=== PATIENT | male | born 1955 | race Caucasian/White ===

== ENCOUNTER 2017-04-19 08:57 | Day surgery (SDC) | payer BC | END 2017-04-19 10:55 | disposition home or self-care (01) | LOC: ORD 08:57 → ORSCMMR 08:57 → MHTC 08:57 → ORD 09:30 → CT 10:00 → ORD 10:55 | PROVIDERS: Radiology Diagnostic Radiology | PROC: B221YZZ Computerized Tomography (CT Scan) of Multiple Coronary Arteries using Other Contrast (ICD-10-PCS; principal; 2017-04-19 09:30) | DX: R94.31 Abnormal electrocardiogram [ECG] [EKG] (principal); I73.9 Peripheral vascular disease, unspecified; R26.89 Other abnormalities of gait and mobility; Z82.49 Family history of ischemic heart disease and other diseases of the circulatory system | CPT/HCPCS: 75574; Q9967 ==

== ENCOUNTER → 2017-06-15 | Outpatient (CLI) | payer BC | END | disposition home or self-care (01) | LOC: LAB SHORT 10:16 → PLD 10:16 | DX: D48.5 Neoplasm of uncertain behavior of skin (principal) | CPT/HCPCS: 88304 ==

== ENCOUNTER → 2018-09-22 | Outpatient (CLI) | payer BC ==
[~2018-09-22] MED LIST: AMLO10 PO; LO-DOSE ASPIRIN81 MG PO; LOSARTAN-HCTZ1 EAC1 PO; METO50ER PO; OCUVITE EYE +1 EACH PO; SIMV40 PO
== END | disposition home or self-care (01) ==
LOC: LAB EV 09:00 → LAB SHORT 09:00
DX: R94.4 Abnormal results of kidney function studies (principal)
CPT/HCPCS: 82043

== ENCOUNTER 2018-09-28 08:13 | Day surgery (SDC) | payer BC ==
[~2018-09-28] VITALS: Ht 182.9 cm; Wt 110.1 kg
== END 2018-09-28 11:20 | disposition home or self-care (01) ==
LOC: ORSCSDS 08:13
PROVIDERS: Internal Medicine Gastroenterology
PROC: 0DBH8ZX Excision of Cecum, Via Natural or Artificial Opening Endoscopic, Diagnostic (ICD-10-PCS; principal; 2018-09-28 10:15)
PROC: 0DBN8ZX Excision of Sigmoid Colon, Via Natural or Artificial Opening Endoscopic, Diagnostic (ICD-10-PCS; principal; 2018-09-28 10:15)
DX: Z12.11 Encounter for screening for malignant neoplasm of colon (principal); D12.5 Benign neoplasm of sigmoid colon; D12.0 Benign neoplasm of cecum; K57.30 Diverticulosis of large intestine without perforation or abscess without bleeding; K64.8 Other hemorrhoids; I10 Essential (primary) hypertension; Z79.899 Other long term (current) drug therapy; Z79.82 Long term (current) use of aspirin
CPT/HCPCS: 88305; J2704; J7120

== ENCOUNTER 2018-10-28 14:18 | Day surgery (SDC) | payer BC ==
[~2018-10-28] VITALS: Ht 182.9 cm; Wt 111.8 kg
--- NOTE | 2018-10-28 16:42 | NUR ---
10/28/18 1642 Valentina Mcdonough O2 FACE TENT REMOVED AT 1641. 97% ON ROOM AIR
--- NOTE | 2018-10-28 17:23 | NUR ---
10/28/18 9155 Valentina Mcdonough WHILE IN STEP DOWN. PT ACCOMPANIED BY HIS IN STEP DOWN. RN WENT OVER DISCHARGE INSTRUCTIONS UNTIL THERE WERE NO QUESTIONS FROM PT AND PT'S FAMILY. PT DRESSED WITH HELP FROM HIS . PT TAKEN OUT TO 'S CAR VIA WHEELCHAIR. WRITTEN INSTRUCTIONS SENT HOME WITH PT.
== END 2018-10-28 17:25 | disposition home or self-care (01) ==
LOC: ORSCSDS 14:18
PROVIDERS: Podiatrist Foot & Ankle Surgery
PROC: 0SGP04Z Fusion of Right Toe Phalangeal Joint with Internal Fixation Device, Open Approach (ICD-10-PCS; principal; 2018-10-28 16:15)
DX: S93.111A Dislocation of interphalangeal joint of right great toe, initial encounter (principal); I12.9 Hypertensive chronic kidney disease with stage 1 through stage 4 chronic kidney disease, or unspecified chronic kidney disease; N18.9 Chronic kidney disease, unspecified; Z79.899 Other long term (current) drug therapy; Z79.82 Long term (current) use of aspirin; E66.9 Obesity, unspecified; Z68.33 Body mass index [BMI] 33.0-33.9, adult
CPT/HCPCS: C1713; C1769; J0690; J1100; J2250; J2405; J2704; J3010; J7120

== ENCOUNTER 2022-08-06 09:24 | Day surgery (SDC) | payer MEDICARE, BC ==
[~2022-08-06] VITALS: Ht 182.9 cm; Wt 109.6 kg
[2022-08-06] MEDS ORDERED: SERT100 (09:36)
[2022-08-06 11:43] VITALS: BP 124/81
== END 2022-08-06 11:37 | disposition home or self-care (01) ==
LOC: ORSCSDS 09:24
PROVIDERS: Internal Medicine Gastroenterology
PROC: 0DJD8ZZ Inspection of Lower Intestinal Tract, Via Natural or Artificial Opening Endoscopic (ICD-10-PCS; principal; 2022-08-06 10:45)
DX: Z12.11 Encounter for screening for malignant neoplasm of colon (principal); Z86.010 Personal history of colon polyps; I10 Essential (primary) hypertension; E78.00 Pure hypercholesterolemia, unspecified; E66.9 Obesity, unspecified; Z68.35 Body mass index [BMI] 35.0-35.9, adult; Z79.899 Other long term (current) drug therapy
CPT/HCPCS: J2704; J7120

== ENCOUNTER 2022-12-13 05:58 | Emergency (ER) | payer MEDICARE, BC ==
[~2022-12-13] VITALS: Ht 180.3 cm; Wt 113.4 kg
[~2022-12-13 05:58] MED LIST changes: +SERT100
[2022-12-13 06:21] VITALS: BP 137/86
== END 2022-12-13 09:39 | disposition home or self-care (01) ==
LOC: ER 05:58
DX: M70.61 Trochanteric bursitis, right hip (principal); I10 Essential (primary) hypertension; E78.5 Hyperlipidemia, unspecified; Z79.899 Other long term (current) drug therapy
CPT/HCPCS: 20610; 73502; 96372-59; 99283-25; J3301

== ENCOUNTER 2023-08-02 07:22 | Day surgery (SDC) | payer MEDICARE, BC ==
[~2023-08-02] VITALS: Ht 180.3 cm; Wt 110.7 kg
[2023-08-02] MEDS ORDERED: Lactated Ringer's 1,000 ML IV ONE ×2 (07:39→08:14)
[2023-08-02] MEDS ORDERED: propofoL 50 ML IV ONE (07:39)
[2023-08-02 09:30] VITALS: BP 112/70
== END 2023-08-02 09:35 | disposition home or self-care (01) ==
LOC: ORSCSDS 07:22
PROVIDERS: Internal Medicine Gastroenterology
PROC: 0DJD8ZZ Inspection of Lower Intestinal Tract, Via Natural or Artificial Opening Endoscopic (ICD-10-PCS; principal; 2023-08-02 08:45)
DX: Z86.010 Personal history of colon polyps (principal); I10 Essential (primary) hypertension; E78.00 Pure hypercholesterolemia, unspecified; Z79.899 Other long term (current) drug therapy
CPT/HCPCS: J2704; J7120